=== PATIENT | female | born 1995 | race Caucasian/White ===

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

== ENCOUNTER → 2017-08-14 | Outpatient (CLI) | payer SELFPAY ==
--- NOTE | 2017-08-14 17:09 | RADIOLOGY REPORT (SQ) ---
EXAM DESCRIPTION: U/S [id number] TRNABD 1GES W/ODOP COMPLETED DATE/TIME: 08/14/2017 3:40 pm REASON FOR STUDY: ENCNTR FOR SUPRVSN OF NORMAL FIRST PREG, FIRST TRIMESTER Z34.01 ENCNTR FOR SUPRVS N OF NORMAL FIRST PREG, FIRST TRIMES COMPARISON: None. TECHNIQUE: Transabdominal static and realtime grayscale images acquired of the pelvis. Additional se lected spectral and color Doppler images recorded. All images stored on PACs. [facility]: Not available. CLINICAL DATES: 9 weeks 6 days LIMITATIONS: None. FINDINGS: FETUS: Living intrauterine . ULTRASOUND EGA: 9 weeks 2 days ULTRASOUND JULITA: 03/17/2018 CRL: 2.5 cm. FHR: 173 beats per minute. SUBCHORIONIC BLEED: No SIZE OF BLEED: Not applicable. UTERUS: No masses or anomalies. 10.3 x 6.7 x 5.4 cm. CERVICAL LENGTH: 2.9 cm. Closed. RIGHT ADNEXA: Ovary not seen. No adnexal free fluid. No adnexal masses. LEFT ADNEXA: Ovary not seen. No adnexal free fluid. No adnexal masses. FREE FLUID: None. OTHER: No other significant finding. IMPRESSION: LIVING INTRAUTERINE . EGA 9 weeks 2 days. Trimester of : First - 0 to 13 weeks. TECHNICAL DOCUMENTATION: JOB ID: [id number] [employer]- All Rights Reserved rev Reading location - IP/workstation name: [email or web address]
== END ==
LOC: RAD 14:41
PROVIDERS: ATTEND Nurse Practitioner Women's Health
DX: Z34.01 Encounter for supervision of normal first pregnancy, first trimester (principal)
CPT/HCPCS: 76801

== ENCOUNTER 2017-08-16 11:23 | Emergency (ER) | payer SELFPAY ==
--- NOTE | 2017-08-16 12:23 | ER Document Report ---
ED Medical Screen (RME) - General Chief Complaint: Abdominal Pain Stated Complaint: VOMITING,DIZZY,ABDOMINAL PAIN Time Seen by Provider: 08/16/17 12:14 Notes: 22-year-old female, had ultrasound 2 days ago showing a 9 week 2 day viable IUP. This morning she woke up and vomited bright red blood with some clots. Later she blew her nose and blood came out of that. She also reports feeling dizzy, and was complaining of some lower abdominal pain. She is also noted to have a frequent dry cough. I suspect she had a nosebleed during the night and swallowed blood and that is what she vomited this morning. I have greeted and performed a rapid initial assessment of this patient. A comprehensive ED assessment and evaluation of the patient, analysis of test results and completion of the medical decision making process will be conducted by additional ED providers. TRAVEL OUTSIDE OF THE [place] IN LAST 30 DAYS: No - Related Data Allergies/Adverse Reactions: No Known Allergies Allergy (Verified 11/17/16 20:40) Past Medical History - Social History Chew tobacco use (# tins/day): No Frequency of alcohol use: None Drug Abuse: None Renal/ Medical History: Denies: Hx Peritoneal Dialysis Physical Exam - Vital signs Vitals: Temp Pulse Resp BP Pulse Ox 98.3 F 105 H 16 131/71 H 99 08/16/17 11:37 08/16/17 11:37 08/16/17 11:37 08/16/17 11:37 08/16/17 11:37 Course - Vital Signs Vital signs: Temp Pulse Resp BP Pulse Ox 98.3 F 105 H 16 131/71 H 99 08/16/17 11:37 08/16/17 11:37 08/16/17 11:37 08/16/17 11:37 08/16/17 11:37 Doctor's Discharge - Discharge Referrals: WANDA GEORGE NP [Primary Care Provider] - Follow up as needed
[2017-08-16 12:58] LABS: ABSOLUTE EOSINOPHILS # (AUTO) 0.1 10^3/uL (0.0-0.6); ABSOLUTE LYMPHOCYTES (AUTO) 1.6 10^3/uL (0.5-4.7); ABSOLUTE MONOCYTES (AUTO) 0.5 10^3/uL (0.1-1.4); ABSOLUTE NEUT (AUTO) 2.9 10^3/uL (1.7-8.2); BASOPHILS % (AUTO) 0.4 % (0-2); EOSINOPHILS % (AUTO) 1.8 % (0-6); HEMATOCRIT 40.2 % (36.0-47.0); HEMOGLOBIN 13.9 g/dL (12.0-15.5); INTERNATIONAL RATION (INR) 0.98; LYMPHOCYTES % (AUTO) 32.3 % (13-45); MEAN CORPUSCULAR HEMOGLOBIN 29.2 pg (27.0-33.4); MEAN CORPUSCULAR HGB CONC 34.6 g/dL (32.0-36.0); MEAN CORPUSCULAR VOLUME 85 fl (80-97); MONOCYTES % (AUTO) 9.1 % (3-13); PLATELET COUNT 409 10^3/uL (150-450); PROTHROMBIN TIME 13.5 SEC (11.4-15.4); RED BLOOD COUNT 4.76 10^6/uL (3.72-5.28); RED CELL DISTRIBUTION WIDTH 14.5 % (11.5-14.0); SEGMENTED NEUTROPHILS % (AUTO) 56.4 % (42-78); TOTAL CELLS COUNTED % (AUTO) 100 %; WHITE BLOOD COUNT 5.1 10^3/uL (4.0-10.5)
[2017-08-16 13:27] LABS: APPEARANCE,URINE CLOUDY; BILIRUBIN,URINE NEGATIVE (NEGATIVE); GLUCOSE, URINE NEGATIVE (NEGATIVE); KETONES,URINE NEGATIVE (NEGATIVE); LEUKOCYTE ESTERASE,URINE MODERATE (NEGATIVE); NITRITE,URINE NEGATIVE (NEGATIVE); PROTEIN,URINE 100 mg/dL (NEGATIVE); URINE SPECIFIC GRAVITY 1.024
[2017-08-16 13:28] LABS: COLOR,URINE YELLOW
--- NOTE | 2017-08-16 14:31 | ER Document Report ---
ED General - General Chief Complaint: Abdominal Pain Stated Complaint: VOMITING,DIZZY,ABDOMINAL PAIN Time Seen by Provider: 08/16/17 12:14 Mode of Arrival: Ambulatory Information source: Patient Notes: 22-year-old female 1 para 09 weeks 4 days based on ultrasound was performed 2 days ago resents with complaints of vomiting bright red blood. She denies any fevers or chills patient notes she had a nosebleed. She denies any dark stools. Admits to dizziness intermittent abdominal cramping, denies any vaginal bleeding TRAVEL OUTSIDE OF THE [place] IN LAST 30 DAYS: No - HPI Onset: Just prior to arrival Onset/Duration: Sudden Quality of pain: Cramping Severity: Mild Pain Level: 1 Associated symptoms: Other Exacerbated by: Denies Relieved by: Denies Similar symptoms previously: No Recently seen / treated by doctor: No - Related Data Allergies/Adverse Reactions: No Known Allergies Allergy (Verified 11/17/16 20:40) Past Medical History - Social History Smoking Status: Never Smoker Cigarette use (# per day): No Chew tobacco use (# tins/day): No Smoking Education Provided: No Frequency of alcohol use: None Drug Abuse: None Family History: Reviewed & Not Pertinent Patient has suicidal ideation: No Patient has homicidal ideation: No Renal/ Medical History: Denies: Hx Peritoneal Dialysis Review of Systems - Review of Systems Notes: REVIEW OF SYSTEMS: CONSTITUTIONAL : Denies fever, chills, or sweats. Denies recent illness. EENT: Denies eye, ear, throat, or mouth pain or symptoms. Denies nasal or sinus congestion or discharge. Denies throat, tongue, or mouth swelling or difficulty swallowing. CARDIOVASCULAR: Denies chest pain. Denies palpitations or racing or irregular heart beat. Denies ankle edema. RESPIRATORY: Denies cough, cold, or chest congestion. Denies shortness of breath, difficulty breathing, or wheezing. GASTROINTESTINAL: Admits to abdominal cramping vomiting blood GENITOURINARY: Denies difficulty urinating, painful urination, burning, frequency, blood in urine, or discharge. FEMALE GENITOURINARY: Denies vaginal bleeding, heavy or abnormal periods, irregular periods. Denies vaginal discharge or odor. MUSCULOSKELETAL: Denies back or neck pain or stiffness. Denies joint pain or swelling. SKIN: Denies rash, lesions or sores. HEMATOLOGIC : Denies easy bruising or bleeding. LYMPHATIC: Denies swollen, enlarged glands. NEUROLOGICAL: Denies confusion or altered mental status. Denies passing out or loss of consciousness. Denies dizziness or lightheadedness. Denies headache. Denies weakness or paralysis or loss of use of either side. Denies problems with gait or speech. Denies sensory loss, numbness, or tingling. Denies seizures. PSYCHIATRIC: Denies anxiety or stress. Denies depression, suicidal ideation, or homicidal ideation. ALL OTHER SYSTEMS REVIEWED AND NEGATIVE. PHYSICAL EXAMINATION: GENERAL: Well-appearing, well-nourished and in no acute distress. HEAD: Atraumatic, normocephalic. EYES: Pupils equal round and reactive to light, extraocular movements intact, conjunctiva are normal. ENT: Nares patent, oropharynx clear without exudates. Moist mucous membranes. NECK: Normal range of motion, supple without lymphadenopathy LUNGS: Breath sounds clear to auscultation bilaterally and equal. No wheezes rales or rhonchi. HEART: Regular rate and rhythm without murmurs ABDOMEN: Soft, nontender, nondistended abdomen. No guarding, no rebound. No masses appreciated. Female : deferred Musculoskeletal: Normal range of motion, no pitting or edema. No cyanosis. NEUROLOGICAL: Cranial nerves grossly intact. Normal speech, normal gait. Normal sensory, motor exams PSYCH: Normal mood, normal affect. SKIN: Warm, Dry, normal turgor, no rashes or lesions noted. Dictation was performed using [employer] voice recognition software Physical Exam - Vital signs Vitals: Temp Pulse Resp BP Pulse Ox 98.3 F 105 H 16 131/71 H 99 08/16/17 11:37 08/16/17 11:37 08/16/17 11:37 08/16/17 11:37 08/16/17 11:37 Course - Re-evaluation Re-evalutation: 08/16/17 14:30 Rectal examination performed with nurse Holley in the room, no black tarry stools are noted, I believe the bleeding is coming from the nose itself, she does have some blood in her urine as well as bacteria, I will treat her for UTI 08/16/17 15:20 After performing a Medical Screening Examination, I estimate there is LOW risk for ACUTE APPENDICITIS, BOWEL OBSTRUCTION, ACUTE CHOLECYSTITIS, PERFORATED DIVERTICULITIS, INCARCERATED HERNIA, PANCREATITIS, PELVIC INFLAMMATORY DISEASE, PERFORATED ULCER, ECTOPIC , or TUBO-OVARIAN ABSCESS, thus I consider the discharge disposition reasonable. Also, there is no evidence or peritonitis , sepsis, or toxicity. I have reevaluated this patient multiple times and no significant life threatening changes are noted. The patient and I have discussed the diagnosis and risks, and we agree with discharging home with close follow-up with the understanding that symptoms and presentations can change. We also discussed returning to the Emergency Department immediately if new or worsening symptoms occur. We have discussed the symptoms which are most concerning (e.g., bloody stool, fever, changing or worsening pain, vomiting) that necessitate immediate return. - Vital Signs Vital signs: Temp Pulse Resp BP Pulse Ox 98.1 F 99 16 120/63 99 08/16/17 15:49 08/16/17 15:49 08/16/17 11:37 08/16/17 15:49 08/16/17 15:49 - Laboratory Result Diagrams: 08/16/17 12:25 Laboratory results interpreted by me: 08/16/17 08/16/17 12:25 12:25 RDW 14.5 H Urine Protein 100 H Urine Blood MODERATE H Urine Urobilinogen 2.0 H Ur Leukocyte Esterase MODERATE H Discharge - Discharge Clinical Impression: UTI in Qualifiers: Trimester: first trimester Qualified Code(s): O23.41 - Unspecified infection of urinary tract in , first trimester Condition: Stable Disposition: HOME, SELF-CARE Instructions: Urinary Tract Infection ([facility]) Prescriptions: Cephalexin Monohydrate [Keflex 500 mg Capsule] 500 mg PO BID 7 Days capsule Referrals: WANDA GEORGE NP [NO LOCAL MD] - Follow up in 3-5 days
[2017-08-16 15:50] VITALS: BP 120/63
== END 2017-08-16 15:59 | disposition home or self-care (01) ==
LOC: ER 11:23
DX: O23.41 Unspecified infection of urinary tract in pregnancy, first trimester (principal); O21.9 Vomiting of pregnancy, unspecified; O26.891 Other specified pregnancy related conditions, first trimester; R42 Dizziness and giddiness; R10.9 Unspecified abdominal pain; Z3A.10 10 weeks gestation of pregnancy
CPT/HCPCS: 36415; 81001; 82272; 85025; 85610; 99284

== ENCOUNTER 2017-09-04 11:19 | Emergency (ER) | payer MEDICAID ==
--- NOTE | 2017-09-04 11:48 | ER Document Report ---
ED Medical Screen (RME) - General Chief Complaint: Vaginal Bleeding Stated Complaint: VAGINAL BLEEDING,PAINFUL URINATION Time Seen by Provider: 09/04/17 11:45 Notes: Patient is , first , who noted vaginal spotting and bleeding this morning. She is needing to wear a pad. Is having some lower midline cramping. Has not had bleeding previously in her . 1. LMP 4/ 25. Has some urinary burning. Denies any fevers. No other medical problems. TRAVEL OUTSIDE OF THE [place] IN LAST 30 DAYS: No - Related Data Allergies/Adverse Reactions: seafood Allergy (Uncoded 09/04/17 11:20) Past Medical History - Social History Chew tobacco use (# tins/day): No Frequency of alcohol use: None Drug Abuse: None Renal/ Medical History: Denies: Hx Peritoneal Dialysis Physical Exam - Vital signs Vitals: Temp Pulse Resp BP Pulse Ox 98.1 F 99 20 134/68 H 99 09/04/17 11:26 09/04/17 11:26 09/04/17 11:26 09/04/17 11:26 09/04/17 11:26 Course - Vital Signs Vital signs: Temp Pulse Resp BP Pulse Ox 98.1 F 99 20 134/68 H 99 09/04/17 11:26 09/04/17 11:26 09/04/17 11:26 09/04/17 11:26 09/04/17 11:26
[2017-09-04 12:24] LABS: ABSOLUTE LYMPHOCYTES (AUTO) 1.9 10^3/uL (0.5-4.7); ABSOLUTE MONOCYTES (AUTO) 0.6 10^3/uL (0.1-1.4); ABSOLUTE NEUT (AUTO) 7.9 10^3/uL (1.7-8.2); BASOPHILS % (AUTO) 0.1 % (0-2); EOSINOPHILS % (AUTO) 0.3 % (0-6); HEMATOCRIT 40.5 % (36.0-47.0); HEMOGLOBIN 13.5 g/dL (12.0-15.5); LYMPHOCYTES % (AUTO) 18.4 % (13-45); MEAN CORPUSCULAR HEMOGLOBIN 28.4 pg (27.0-33.4); MEAN CORPUSCULAR HGB CONC 33.5 g/dL (32.0-36.0); MEAN CORPUSCULAR VOLUME 85 fl (80-97); MONOCYTES % (AUTO) 5.8 % (3-13); PLATELET COUNT 423 10^3/uL (150-450); RED BLOOD COUNT 4.77 10^6/uL (3.72-5.28); RED CELL DISTRIBUTION WIDTH 14.7 % (11.5-14.0); SEGMENTED NEUTROPHILS % (AUTO) 75.4 % (42-78); TOTAL CELLS COUNTED % (AUTO) 100 %; WHITE BLOOD COUNT 10.5 10^3/uL (4.0-10.5)
--- NOTE | 2017-09-04 13:10 | RADIOLOGY REPORT (SQ) ---
EXAM DESCRIPTION: U/S OB TRANSVAG W/DOPPLER COMPLETED DATE/TIME: 09/04/2017 12:47 pm REASON FOR STUDY: with vaginal bleeding and cramps COMPARISON: None. TECHNIQUE: Transvaginal static and realtime grayscale images acquired of the pelvis. Additional kaila cted spectral and color Doppler images recorded. All images stored on PACs. bHCG: Not available. CLINICAL DATES: LIMITATIONS: None. FINDINGS: FETUS: Living intrauterine . ULTRASOUND EGA: 12 weeks 5 days ULTRASOUND JULITA: 03/13/2018 CRL: 6.3 cm FHR: 163 beats per minute. SUBCHORIONIC BLEED: No. SIZE OF BLEED: Not applicable. UTERUS: No masses. No anomalies. CERVICAL LENGTH: 2.2 cm. Closed. RIGHT ADNEXA: Normal ovary with normal vascular flow. No adnexal free fluid. No adnexal masses. LEFT ADNEXA: Normal ovary with normal vascular flow. No adnexal free fluid. No adnexal masses. FREE FLUID: Small amount. OTHER: No other significant finding. IMPRESSION: LIVING INTRAUTERINE . EGA 12 weeks 5 days. Trimester of : First - 0 to 13 weeks. TECHNICAL DOCUMENTATION: JOB ID: [id number] [employer]- All Rights Reserved rev-06/29 Reading location - IP/workstation name: [email or web address]
--- NOTE | 2017-09-04 13:27 | ER Document Report ---
ED General - General Chief Complaint: Vaginal Bleeding Stated Complaint: VAGINAL BLEEDING,PAINFUL URINATION Time Seen by Provider: 09/04/17 11:45 Mode of Arrival: Ambulatory Information source: Patient TRAVEL OUTSIDE OF THE [place] IN LAST 30 DAYS: No - HPI Notes: 22-year-old female who is nearly 13 weeks with her first patient presents to the ED with complaints of vaginal spotting and cramping that started this morning. Denies any trauma. She is being managed by the health department for her [facility] care. Has not tried any [id number]-[id number] medications. Denies any recent travel, new foods or medications. Last menstrual period was June 06, 2017. Denies any previous occurrence of vaginal bleeding. Last bowel movement was yesterday. Denies any rashes. Vaccinations are up-to-date. Does not know blood type. Patient states she needed to use a sedentary. However she cannot believe the sedentary pad since the onset of bleeding of 600 this morning denies fevers, chills, chest pain,palpitations, shortness of breath, dyspnea, nausea, vomiting, diarrhea, abdominal pain, hematuria,blurred vision, double vision, loss of vision, speech changes, LH, dizziness, syncope, headaches, wheezing, ST, URI, neck pain, weakness, bowel or bladder dysfunction, saddle anesthesia, numbness or tingling in bilateral upper or lower extremities equally, muscle paralysis, weakness in bilateral upper or lower extremities equally or rash. Denies IV drug use. - Related Data Allergies/Adverse Reactions: seafood Allergy (Uncoded 09/04/17 11:20) Past Medical History - General Information source: Patient - Social History Smoking Status: Never Smoker Chew tobacco use (# tins/day): No Frequency of alcohol use: None Drug Abuse: None Family History: Reviewed & Not Pertinent Patient has suicidal ideation: No Patient has homicidal ideation: No Renal/ Medical History: Denies: Hx Peritoneal Dialysis Review of Systems - Review of Systems Constitutional: No symptoms reported EENT: No symptoms reported Cardiovascular: No symptoms reported Respiratory: No symptoms reported Gastrointestinal: No symptoms reported Genitourinary: No symptoms reported Female Genitourinary: See HPI Musculoskeletal: No symptoms reported Skin: No symptoms reported Hematologic/Lymphatic: No symptoms reported Neurological/Psychological: No symptoms reported Physical Exam - Vital signs Vitals: Temp Pulse Resp BP Pulse Ox 98.1 F 99 20 134/68 H 99 09/04/17 11:26 09/04/17 11:26 09/04/17 11:26 09/04/17 11:26 09/04/17 11:26 - Notes Notes: PHYSICAL EXAMINATION: GENERAL: Well-appearing, well-nourished and in no acute distress. HEAD: Atraumatic, normocephalic. EYES: Pupils equal round and reactive to light, extraocular movements intact, conjunctiva are normal. ENT: Nares patent, oropharynx clear without exudates. Moist mucous membranes. NECK: Normal range of motion, supple without lymphadenopathy LUNGS: Breath sounds clear to auscultation bilaterally and equal. No wheezes rales or rhonchi. HEART: Regular rate and rhythm without murmurs ABDOMEN: Soft, nontender, nondistended abdomen. No guarding, no rebound. No masses appreciated. Female : External genitalia without erythema, exudate or discharge. Vaginal vault is without discharge. Cervix is of normal color without lesion. There is no bleeding noted. Uterus is noted to be of normal size and nontender. No cervical motion tenderness is seen. No masses are palpated. cervical os closed Musculoskeletal: Normal range of motion, no pitting or edema. No cyanosis. NEUROLOGICAL: Cranial nerves grossly intact. Normal speech, normal gait. Normal sensory, motor exams PSYCH: Normal mood, normal affect. SKIN: Warm, Dry, normal turgor, no rashes or lesions noted. Course - Re-evaluation Re-evalutation: 09/04/17 14:24 22-year-old female in first , 8 febrile, vitals stable and in no distress. HCG 78,501, CBC negative for leukocytosis or anemia. CMP negative for any renal or hepatic dysfunction, electrolytes normal. Urinalysis shows pyelonephritis with leukocytes, hematuria and proteinuria. Patient states he did have some burning with urination but that this was due to being since is her first . Wet mount and GC negative. Transvaginal ultrasound shows an intrauterine . heart tones 163. No blood seen in the vaginal canal on examination. Normal examination. Patient is on any pain. Patient is O+, does not require RhoGam. Patient is being managed by the health department. Patient is taking vitamins, discussed with patient that she does need to [facility] with [facility] for post ER follow-up. Advised patient to take oral Macrobid as directed, patient given 1 g of Rocephin for acute pyelonephritis. 09/04/17 15:39 After performing a Medical Screening Examination, I estimate there is LOW risk for ACUTE APPENDICITIS, BOWEL OBSTRUCTION, ACUTE CHOLECYSTITIS, PERFORATED DIVERTICULITIS, INCARCERATED HERNIA, PANCREATITIS, PELVIC INFLAMMATORY DISEASE, PERFORATED ULCER, ECTOPIC , or TUBO-OVARIAN ABSCESS, thus I consider the discharge disposition reasonable. Also, there is no evidence or peritonitis , sepsis, or toxicity. I have reevaluated this patient multiple times and no significant life threatening changes are noted. The patient and I have discussed the diagnosis and risks, and we agree with discharging home with close follow-up with the understanding that symptoms and presentations can change. We also discussed returning to the Emergency Department immediately if new or worsening symptoms occur. We have discussed the symptoms which are most concerning (e.g., bloody stool, fever, changing or worsening pain, vomiting) that necessitate immediate return. - Vital Signs Vital signs: Temp Pulse Resp BP Pulse Ox 97.6 F 110 H 18 127/74 H 98 09/04/17 15:00 09/04/17 15:00 09/04/17 15:00 09/04/17 15:00 09/04/17 15:00 - Laboratory Result Diagrams: 09/04/17 11:52 09/04/17 11:52 Laboratory results interpreted by me: 09/04/17 09/04/17 09/04/17 11:27 11:52 11:52 RDW 14.7 H BUN Beta HCG, Quant 87291.00 H Urine Protein 100 H Urine Blood LARGE H Ur Leukocyte Esterase MODERATE H 09/04/17 11:52 RDW BUN 3 L Beta HCG, Quant Urine Protein Urine Blood Ur Leukocyte Esterase Discharge - Discharge Clinical Impression: Pyelonephritis Qualifiers: Weeks of gestation: 13 weeks Qualified Code(s): Z3A.13 - 13 weeks gestation of Condition: Stable Disposition: HOME, SELF-CARE Instructions: Antibiotic Therapy ([facility]), Nitrofurantoin ([facility]), ([facility]), Pyelonephritis ([facility]), Rocephin ([facility]) Additional Instructions: You were seen for abdominal pain during . Your ultrasound and labs are normal today. You do have a pyelonephritis which is a bladder infection that also in your kidney, he received 1 g of Rocephin today as well as he will be receiving oral antibiotics to take twice a day for 10 days. Eat yogurt daily to prevent loose stool. Continue taking vitamins. Please follow-up with your MANAGER ERP in the next 24-48 hours. Return to the emergency department immediately if you have worsening of your pain, have persistent vomiting, develop a fever of greater than 100.4F, begin to have vaginal bleeding, or any other symptoms that are worrisome to you. Return immediately for any new or worsening symptoms. Follow up with primary care provider, call tomorrow to make followup appointment. Prescriptions: Nitrofurantoin Monohyd/M-Cryst [Macrobid 100 mg Capsule] 1 tab PO BID #20 capsule Forms: Return to Work Referrals: CHASITY HAY MD [ACTIVE STAFF] - Follow up tomorrow TAMMY SKY MD [COMMUNITY BASED STAFF] - Follow up in 3-5 days
[2017-09-04 13:38] LABS: ANION GAP 14 (5-19); BLOOD UREA NITROGEN 3 mg/dL (7-20); CALCIUM 9.6 mg/dL (8.4-10.2); CARBON DIOXIDE 23 mmol/L (22-30); CHLORIDE 104 mmol/L (98-107); GLUCOSE 86 mg/dL (75-110); POTASSIUM 4.1 mmol/L (3.6-5.0)
[2017-09-04 13:42] LABS: RBCS (WET MOUNT) RARE RBCS SEEN; T.VAGINALIS (WET MOUNT) NO TRICHOMONAS SEEN; WBCS (WET MOUNT) 1+ WBCS SEEN; YEAST (WET MOUNT) NO YEAST SEEN
[2017-09-04 13:44] LABS: APPEARANCE,URINE TURBID; BILIRUBIN,URINE NEGATIVE (NEGATIVE); GLUCOSE, URINE NEGATIVE (NEGATIVE); KETONES,URINE NEGATIVE (NEGATIVE); LEUKOCYTE ESTERASE,URINE MODERATE (NEGATIVE); NITRITE,URINE NEGATIVE (NEGATIVE); PROTEIN,URINE 100 mg/dL (NEGATIVE); URINE SPECIFIC GRAVITY 1.021; UROBILINOGEN,URINE NEGATIVE mg/dL (<2.0)
[2017-09-04 13:46] LABS: COLOR,URINE RED
[2017-09-04] MEDS ORDERED: LIDOCAINE 1% INJ-PF (10 MG/ML) 30 ML SDV INJ ONE (14:18)
[2017-09-04] MEDS ORDERED: CEFTRIAXONE INJ 1000 MG VIAL IM ONE (14:18)
[2017-09-04 15:01] VITALS: BP 127/74
[2017-09-04 15:15] LABS: CHLAM PCR NOT DETECTED (NOT DETECT); GON PCR NOT DETECTED (NOT DETECT)
== END 2017-09-04 15:00 | disposition home or self-care (01) ==
LOC: ER 11:19
DX: O23.01 Infections of kidney in pregnancy, first trimester (principal); R30.0 Dysuria; Z3A.13 13 weeks gestation of pregnancy; Z91.013 Allergy to seafood
CPT/HCPCS: 99284; 96372; 86900; 86901; 36415; 87210; 84702; 85025; 80048; 81001; 87491; 87591; 76817; 93976; J3490; J0696

== ENCOUNTER 2018-03-04 19:12 | Outpatient (CLI) | payer MEDICAID ==
[2018-03-04 19:45] LABS: APPEARANCE,URINE SLIGHTLY-CLOUDY; BILIRUBIN,URINE NEGATIVE (NEGATIVE); COLOR,URINE YELLOW; GLUCOSE, URINE NEGATIVE (NEGATIVE); KETONES,URINE NEGATIVE (NEGATIVE); LEUKOCYTE ESTERASE,URINE TRACE (NEGATIVE); NITRITE,URINE NEGATIVE (NEGATIVE); PROTEIN,URINE NEGATIVE (NEGATIVE); URINE SPECIFIC GRAVITY 1.013; UROBILINOGEN,URINE NEGATIVE mg/dL (<2.0)
[2018-03-04 20:06] LABS: URINE AMPHETAMINES SCREEN NEGATIVE; URINE BARBITURATES SCREEN NEGATIVE; URINE BENZODIAZEPINES SCREEN NEGATIVE; URINE COCAINE SCREEN NEGATIVE; URINE MARIJUANA (THC) SCREEN NEGATIVE; URINE METHADONE SCREEN NEGATIVE; URINE PHENCYCLIDINE SCREEN NEGATIVE
--- NOTE | 2018-03-04 20:15 | Non Stress Test Report ---
Non Stress Test Datetime Report Generated by CPN: 03/04/2018 20:15 DEMOGRAPHIC Test Number: 1 EGA NST: 38.1 INDICATION Indication for Study (NST) Other: ROM? MONITORING Monitor Explained: Monitor Explained; Patient Verbalized Understanding Time on Monitor: 03/04/2018 19:29 Time off Monitor: 03/04/2018 19:56 NST Duration: 27 NST INTERVENTIONS Physician Notified NST: Younger MD BABY A: [id number] BABY A Movement : Present Contraction Frequency : occassional FHR Baseline : 145 Accelerations : 15X15 Decelerations : None Variability : Moderate 6-25bpm NST Review: Meets Criteria for Reactive NST NST Review and Verified By : SCely Lombardotibhenrry, RNC NST Results: Reactive NST REPORT Report Trigger: Send Report
== END 2018-03-04 20:09 | disposition home or self-care (01) ==
LOC: LC 19:12
PROVIDERS: ATTEND Obstetrics & Gynecology
PROC: 4A1HXCZ Monitoring of Products of Conception, Cardiac Rate, External Approach (ICD-10-PCS; principal; 2018-03-04)
DX: O47.1 False labor at or after 37 completed weeks of gestation (principal); Z3A.38 38 weeks gestation of pregnancy
CPT/HCPCS: 80307; 81005; 84112

== ENCOUNTER 2018-03-08 09:06 | Outpatient (CLI) | payer MEDICAID ==
[2018-03-08 10:08] LABS: URINE AMPHETAMINES SCREEN NEGATIVE; URINE BARBITURATES SCREEN NEGATIVE; URINE BENZODIAZEPINES SCREEN NEGATIVE; URINE COCAINE SCREEN NEGATIVE; URINE MARIJUANA (THC) SCREEN NEGATIVE; URINE METHADONE SCREEN NEGATIVE; URINE PHENCYCLIDINE SCREEN NEGATIVE; URINE PROTEIN 8.5 mg/dL (<12)
[2018-03-08 10:24] LABS: HEMATOCRIT 31.1 % (36.0-47.0); HEMOGLOBIN 10.4 g/dL (12.0-15.5); MEAN CORPUSCULAR HEMOGLOBIN 26.2 pg (27.0-33.4); MEAN CORPUSCULAR HGB CONC 33.3 g/dL (32.0-36.0); MEAN CORPUSCULAR VOLUME 79 fl (80-97); PLATELET COUNT 469 10^3/uL (150-450); RED BLOOD COUNT 3.95 10^6/uL (3.72-5.28); WHITE BLOOD COUNT 7.2 10^3/uL (4.0-10.5)
[2018-03-08 10:42] LABS: ALANINE AMINOTRANSFERASE 12 U/L (9-52); ALBUMIN 3.3 g/dL (3.5-5.0); ALKALINE PHOSPHATASE 138 U/L (38-126); ANION GAP 7 (5-19); ASPARTATE AMINO TRANSFERASE 15 U/L (14-36); BILIRUBIN,DIRECT 0.2 mg/dL (0.0-0.4); BILIRUBIN,TOTAL 0.3 mg/dL (0.2-1.3); BLOOD UREA NITROGEN 5 mg/dL (7-20); CALCIUM 8.9 mg/dL (8.4-10.2); CARBON DIOXIDE 23 mmol/L (22-30); CHLORIDE 107 mmol/L (98-107); GLUCOSE 84 mg/dL (75-110); POTASSIUM 4.1 mmol/L (3.6-5.0); SODIUM 136.8 mmol/L (137-145); URIC ACID 4.5 mg/dL (2.5-6.2)
[2018-03-08] MEDS ORDERED: ACETAMINOPHEN 325 MG TABLET PO ONE (10:45)
[2018-03-08] MEDS ORDERED: ACETAMINOPHEN 325 MG TABLET ONE (10:50)
== END 2018-03-08 11:26 | disposition home or self-care (01) ==
LOC: LC 09:06
PROVIDERS: ATTEND Obstetrics & Gynecology
PROC: 4A1HXCZ Monitoring of Products of Conception, Cardiac Rate, External Approach (ICD-10-PCS; principal; 2018-03-08)
DX: Z36.89 Encounter for other specified antenatal screening (principal)
CPT/HCPCS: 59025; 36415; 83615; 84156; 84550; 82570; 85027; 80053; 80307; J3490

== ENCOUNTER 2018-03-15 15:39 | Outpatient (CLI) | payer MEDICAID ==
--- NOTE | 2018-03-15 15:46 | Non Stress Test Report ---
Non Stress Test Datetime Report Generated by CPN: 03/15/2018 15:46 DEMOGRAPHIC EGA NST: 38.5 INDICATION Indication for Study: Ordered by Provider MONITORING Monitor Explained: Monitor Explained; Test Explained; Patient Verbalized Understanding Time on Monitor: 03/08/2018 09:23 Time off Monitor: 03/08/2018 11:23 NST Duration: 120 NST INTERVENTIONS NST Interventions: PO Hydration; Meal Given; Reposition Patient Physician Notified NST: Lawrence BABY A: [id number] BABY A Movement : Present Contraction Frequency : 0 FHR Baseline : 135 Accelerations : 15X15 Decelerations : None Variability : Moderate 6-25bpm NST Review: Meets Criteria for Reactive NST NST Review and Verified By : aRdha Laurent RN NST Results: Reactive NST REPORT Report Trigger: Send Report
--- NOTE | 2018-03-18 11:19 | Non Stress Test Report ---
Non Stress Test Datetime Report Generated by CPN: 03/18/2018 11:19 DEMOGRAPHIC EGA NST: 39.5 INDICATION Indication for Study: Ordered by Provider Indication for Study (NST) Other: sent from the office for repeat VITAL SIGNS RESP - NST: 16 MONITORING Monitor Explained: Monitor Explained; Test Explained; Patient Verbalized Understanding Time on Monitor: 03/15/2018 15:45 Time off Monitor: 03/15/2018 16:42 NST Duration: 57 NST INTERVENTIONS NST Interventions: PO Hydration; Reposition Patient Physician Notified NST: J Simms CNM BABY A: [id number] BABY A Movement : Present Contraction Frequency : 0 FHR Baseline : 145 Accelerations : 15X15 Decelerations : None Variability : Moderate 6-25bpm NST Review: Meets Criteria for Reactive NST NST Review and Verified By : TAD Hester NST Results: Reactive NST REPORT Report Trigger: Send Report
== END 2018-03-15 16:43 | disposition home or self-care (01) ==
LOC: LC 15:39
PROVIDERS: ATTEND Obstetrics & Gynecology
PROC: 4A1HXCZ Monitoring of Products of Conception, Cardiac Rate, External Approach (ICD-10-PCS; principal; 2018-03-15)
DX: Z34.93 Encounter for supervision of normal pregnancy, unspecified, third trimester (principal)
CPT/HCPCS: 59025

== ENCOUNTER 2018-03-18 12:17 | Inpatient (IN) | payer MEDICAID ==
[2018-03-18] MEDS ORDERED: RINGERS SOLUTION,LACTATED 1,000 ML IV PRN (12:21)
[2018-03-18] MEDS ORDERED: DINOPROSTONE 10 MG VAGINAL INSERT.SR PV PRN (12:21)
[2018-03-18] MEDS ORDERED: OXYTOCIN/NORMAL SALINE 1,000 ML IV PRN (12:21)
[2018-03-18] MEDS ORDERED: RINGERS SOLUTION,LACTATED 300 ML IV ONE (12:21)
[2018-03-18] MEDS ORDERED: DINOPROSTONE 10 MG VAGINAL INSERT.SR ONE (13:17)
[2018-03-18 13:19] LABS: ABSOLUTE LYMPHOCYTES (AUTO) 1.6 10^3/uL (0.5-4.7); ABSOLUTE MONOCYTES (AUTO) 0.5 10^3/uL (0.1-1.4); ABSOLUTE NEUT (AUTO) 6.2 10^3/uL (1.7-8.2); BASOPHILS % (AUTO) 0.3 % (0-2); EOSINOPHILS % (AUTO) 0.2 % (0-6); HEMATOCRIT 35.9 % (36.0-47.0); HEMOGLOBIN 11.7 g/dL (12.0-15.5); LYMPHOCYTES % (AUTO) 19.4 % (13-45); MEAN CORPUSCULAR HEMOGLOBIN 25.5 pg (27.0-33.4); MEAN CORPUSCULAR HGB CONC 32.4 g/dL (32.0-36.0); MEAN CORPUSCULAR VOLUME 78 fl (80-97); MONOCYTES % (AUTO) 6.3 % (3-13); PLATELET COUNT 481 10^3/uL (150-450); RED BLOOD COUNT 4.58 10^6/uL (3.72-5.28); SEGMENTED NEUTROPHILS % (AUTO) 73.8 % (42-78); TOTAL CELLS COUNTED % (AUTO) 100 %; WHITE BLOOD COUNT 8.3 10^3/uL (4.0-10.5)
--- NOTE | 2018-03-18 13:21 | Admission Physical ---
Datetime Report Generated by CPN: 03/18/2018 13:21 CURRENT ADMISSION Chief Complaint: Sent from OB Office for Evaluation and Treatment - Please Specify Indication for Induction: Oligohydramnios Admit Impression : Term, Intrauterine ; No Active Labor; Intact Membranes Admit Impression- Other: GBS negative Admit Plan: Admit to Unit Admit Plan- Other: Plan Cervidil for cervical ripening ALLERGIES Medication Allergies: Yes Medication Allergies: shellfish, get migraines Latex: No Latex Allergies OBSTETRICAL HISTORY EDC: 03/17/2018 00:00 : 1 Para: 0 Term: 0 : 0 SAB: 0 IAB: 0 Ectopic: 0 Livin Cesareans: 0 VBACs: 0 Multiple Births: 0 SEE RECORDS Alcohol: No Marijuana : No Cocaine: No Other Illicit Drugs: No Cigarettes: Never Smoker. [id number] PHYSICAL EXAM General: Normal HEENT: Normal Neurologic: Normal Thyroid: Normal Heart: Normal Lungs: Normal Breast: Normal Back: Normal Abdomen: Normal Genitourinary Exam: Normal Extremities: Normal DTRs: Normal Pelvic Type: Adequate Vital Signs: Reviewed; Within Normal Limits VAGINAL EXAM Dilatation: 1 Effacement: 50 Station: 0 Contraction Comments: 0 MEMBRANES Membranes: Intact FETUS A EGA: 40.1 Monitoring: External US FHR- Baseline: 140 Variability: Moderate 6-25bpm Accelerations: 15X15 Decelerations: None FHR Category: Category I Admit Comment: Pt seen in the office today, u/s done and noted KELVIN 3.0 cm. Sent over from the office for IOL at 40 wks 1 day. GBS negative. Plan of care discussed w/ the patient. Plan Cervidil for cervical ripening. GBS negative. Attending MD is Dr Bravo PLANS FOR LABOR AND DELIVERY Labor and Delivery: None Pain Management: Medications; Epidural Other Pain Management Plans: wants to see of it goes Feeding Preference: Breast Circumcision: N/A INFORMED CONSENT Assignment: Nuria Bravo MD Signature: with User ID: Diane : with User ID: Diane
[2018-03-18 13:39] LABS: APPEARANCE,URINE CLOUDY; BILIRUBIN,URINE SMALL (NEGATIVE); COLOR,URINE AMBER; GLUCOSE, URINE NEGATIVE (NEGATIVE); KETONES,URINE NEGATIVE (NEGATIVE); LEUKOCYTE ESTERASE,URINE TRACE (NEGATIVE); NITRITE,URINE NEGATIVE (NEGATIVE); PROTEIN,URINE 30 mg/dL (NEGATIVE); URINE SPECIFIC GRAVITY 1.027
[2018-03-18 14:08] LABS: URINE AMPHETAMINES SCREEN NEGATIVE; URINE BARBITURATES SCREEN NEGATIVE; URINE BENZODIAZEPINES SCREEN NEGATIVE; URINE COCAINE SCREEN NEGATIVE; URINE MARIJUANA (THC) SCREEN NEGATIVE; URINE METHADONE SCREEN NEGATIVE; URINE PHENCYCLIDINE SCREEN NEGATIVE
[2018-03-19] MEDS ORDERED: ACETAMINOPHEN 325 MG TABLET ONE (00:33)
[2018-03-19] MEDS ORDERED: OXYTOCIN 10 UNIT/ML VIAL ONE (04:21)
[2018-03-19] MEDS ORDERED: OXYTOCIN/NORMAL SALINE 20 UNIT/1,000 ML RTUINJ ONE (04:22)
[2018-03-19] MEDS ORDERED: FENTANYL/BUPIVACAINE/NS/PF 300 MCG/150 ML RTUINJ EPI ONE (04:22)
[2018-03-19] MEDS ORDERED: EPHEDRINE SULFATE INJ 50 MG/1 ML AMPULE ONE (04:22)
[2018-03-19] MEDS ORDERED: LIDOCAINE 1% INJ-PF (10 MG/ML) 30 ML SDV ONE (04:22)
[2018-03-19] MEDS ORDERED: MISOPROSTOL 0.2 MG TABLET ONE (04:22)
[2018-03-19] MEDS ORDERED: BUPIVACAINE HCL 0.25 % INJ/PF (2.5 MG/1 ML) 30 ML VIAL ONE (04:22)
[2018-03-19] MEDS ORDERED: NA PHOS,M-B/NA PHOS,DI-BA (ADULT) 133 ML ENEMA PR PRN (08:25)
[2018-03-19] MEDS ORDERED: ZOLPIDEM TARTRATE 5 MG TABLET PO PRN (08:25)
[2018-03-19] MEDS ORDERED: GLYCERIN/WITCH HAZEL LEAF 1 EACH MED..PAD TP PRN (08:25)
[2018-03-19] MEDS ORDERED: PSEUDOEPHEDRINE HCL 30 MG TABLET PO PRN (08:25)
[2018-03-19] MEDS ORDERED: MAGNESIUM HYDROXIDE SUSP 30 ML UDCUP PO PRN (08:25)
[2018-03-19] MEDS ORDERED: DIPH/PERTUSS(ACELL)/TETANUS VAC/PF 0.5 ML SYR (>=10YO) IM PRN (08:25)
[2018-03-19] MEDS ORDERED: ACETAMINOPHEN WITH CODEINE #3 TABLET PO PRN ×2 (08:25)
[2018-03-19] MEDS ORDERED: PROMETHAZINE HCL 25 MG TABLET PO PRN (08:25)
[2018-03-19] MEDS ORDERED: MEASLES,MUMPS&RUBELLA VACC/PF 0.5 ML VIAL SUBCUT PRN (08:25)
[2018-03-19] MEDS ORDERED: OXYTOCIN/NORMAL SALINE 20 UNIT/1,000 ML RTUINJ IV PRN (08:25)
[2018-03-19] MEDS ORDERED: ACETAMINOPHEN 650 MG SUPP.RECT PR PRN (08:25)
[2018-03-19] MEDS ORDERED: PROMETHAZINE HCL 25 MG SUPP.RECT PR PRN (08:25)
[2018-03-19] MEDS ORDERED: DIBUCAINE 1% OINTMENT 28 GM TP PRN (08:25)
[2018-03-19] MEDS ORDERED: DIPHENHYDRAMINE HCL 25 MG CAPSULE PO PRN (08:25)
[2018-03-19] MEDS ORDERED: BENZOCAINE/MENTHOL AEROSOL SPRAY 56 ML TOP PRN (08:25)
[2018-03-19] MEDS ORDERED: PROMETHAZINE HCL INJ 25 MG/1 ML VIAL IV PRN (08:25)
--- NOTE | 2018-03-19 08:45 | Warning Signs in Babies ---
VOD Warning Signs Datetime Report Generated by [facility]: 03/19/2018 08:44 VOD#608 -Warning Signs in Babies: Viewed with Parent(s)/Family (03/04/2018 18:53:CINDA Justin)
[2018-03-19] MEDS ORDERED: FERROUS SULFATE 325 MG TABLET PO SCH (10:00)
[2018-03-19] MEDS: PRENATAL VITAMIN W DHA CAPSULE PO SCH (11:43)
[2018-03-19] MEDS: SENNOSIDES/DOCUSATE 8.6-50 MG 1 EACH TABLET PO SCH (11:43)
[2018-03-19] MEDS: DOCUSATE SODIUM 100 MG CAPSULE PO SCH ×2 (11:43→18:17)
[2018-03-19] MEDS: FAMOTIDINE 20 MG TABLET PO SCH ×2 (11:43→21:56)
[2018-03-19] MEDS: FERROUS SULFATE 325 MG TABLET PO SCH (11:57)
[2018-03-19] MEDS: IBUPROFEN 800 MG TABLET PO SCH ×2 (14:00→21:56)
[2018-03-20] MEDS: IBUPROFEN 800 MG TABLET PO SCH ×3 (06:08→22:55)
[2018-03-20 07:33] LABS: HEMATOCRIT 26.2 % (36.0-47.0); MEAN CORPUSCULAR HEMOGLOBIN 25.9 pg (27.0-33.4); MEAN CORPUSCULAR HGB CONC 33.5 g/dL (32.0-36.0); MEAN CORPUSCULAR VOLUME 77 fl (80-97); PLATELET COUNT 363 10^3/uL (150-450); RED BLOOD COUNT 3.38 10^6/uL (3.72-5.28); RED CELL DISTRIBUTION WIDTH 15.5 % (11.5-14.0); WHITE BLOOD COUNT 9.4 10^3/uL (4.0-10.5)
[2018-03-20 07:51] LABS: HEMOGLOBIN 8.8 g/dL (12.0-15.5)
--- NOTE | 2018-03-20 08:21 | Delivery Summary ---
Del Sum A-C Datetime Report Generated by CPN: 03/20/2018 08:20 DELIVERY PERSONNEL DELIVERY PERSONNEL: [id number] Delivery Doctor:: Nuria Bravo MD Labor and Delivery Nurse:: CINDA Justin Labor and Delivery Nurse:: Mikki Ordonez RN Nursery Nurse:: Doreen Braga RN Student Observers:: Cindy Agrawal RN Glass Driller/DELIVERY LEAD: ST Nona Glass Driller/DELIVERY LEAD: Lynne Murillo, RFID ANALYST MATERNAL INFORMATION Delivery Anesthesia: Epidural Medications After Delivery: Pitocin Bolus-Please Comment Meds After Delivery Comment: Pitocin 20 units in 1000 ml nss open for bolus Maternal Complications: None Provider Comments: VAD per Dr. Bravo, kiwi applied x2 with 1 pop off terminal mec noted LABOR SUMMARY EDC: 03/17/2018 00:00 No. Babies in Womb: 1 Attempted: No Labor Anesthesia: Epidural LABOR INFORMATION Reason for Induction: Oligohydramnios Onset of Labor: 03/19/2018 05:48 Complete Dilatation: 03/19/2018 07:41 Cervical Ripening Agents: Cervidil Oxytocin: Induction Group B Beta Strep: negative Steroids Given: None Reason Steroids Not Administered: Not Applicable STAGES OF LABOR Stage 1 hr: 1 Stage 1 min: 53 Stage 2 hr: 0 Stage 2 min: 18 Stage 3 hr: 0 Stage 3 min: 4 Total Time in Labor hr: 2 Total Time in Labor min: 15 VAGINAL DELIVERY Episiotomy: None Laceration #1: None Laceration Extension #1: N/A Laceration Repair: Not Applicable Sponge Count Correct: N/A Sharps Count Correct: N/A CSECTION DELIVERY Primary Indication: N/A BABY A INFORMATION Infant Delivery Date/Time: 03/19/2018 07:59 Method of Delivery: Vaginal Born in Route : No : N/A Forceps: N/A Vacuum Extraction: N/A Shoulder Dystocia : No ASSISTED DELIVERY BABY A Indication for Assisted Delivery: bradycardia Catheter Prior to Procedure: Yes Station Vacuum/Forcep Apply: +3 Position Vacuum/Forcep Apply: Right Occipital Anterior Vacuum Number of Pulls: 2 Vacuum Number of PopOffs: 1 Vacuum Maximum Pressure Obtained: 300 Reduce Pressure btwn Ctx: Yes Vacuum Display Mechanic: Kiwi Total Time Vacuum Applied: 45 seconds PRESENTATION/POSITION BABY A Presentation: Cephalic Cephalic Presentation: Vertex Vertex Position: Right Occipital Anterior Breech Presentation: N/A PLACENTA INFORMATION BABY A Placenta Delivery Time : 03/19/2018 08:03 Placenta Method of Delivery: Expressed Placenta Status: Delivered SCORES BABY A Heart Rate 1 min: >100 bpm Resp Effort 1 min: Slow, Irregular Reflex Irritability 1 min: Cough or Sneeze or Pulls Away Muscle Tone 1 min: Active Motion Color 1 min: Body [place], Extremities Blue Resuscitation Effort 1 min: Tactile Stimulation SCORE 1 MIN: 8 Heart Rate 5 min: >100 bpm Resp Effort 5 min: Good Cry Reflex Irritability 5 min: Cough or Sneeze or Pulls Away Muscle Tone 5 min: Active Motion Color 5 min: Body [place], Extremities Blue Resuscitation Effort 5 min: Oxygen SCORE 5 MIN: 9 Resuscitation Effort 10 min: N/A INFANT INFORMATION BABY A Gestational Age at Delivery: 40.2 Gestational Status: Full Term- 39- 40.6 Weeks Infant Outcome : Liveborn Infant Condition : Stable Sex: Female WEIGHT/LENGTH BABY A Infant Birthweight (gm): 2912 Weight (lb): 6 Infant Weight (oz): 7 Length (in): 18.75 Infant Length (cm): 47.63 CORD INFORMATION BABY A No. Cord Vessels: 3 Nuchal Cord : N/A Cord Blood Taken: Yes-For Eval (Mom's Blood Type - or O+) Infant Suction: None ASSESSMENT BABY A Complications: Multiple Late Decels; Multiple Variable Decels; Meconium Physical Findings at Delivery: Within Normal Limits Infant Respirations: Appears Normal Skin to Skin: Yes Skin to Skin Time (min): 5 Inspector Elevators/ALS Called : No Care By: Omi Piña RN Transferred To: Remains with Mother SIGNATURES Assignment: Debbi Roland MD Signature: with User ID: [email or web address] : with User ID: [email or web address] : I was personally available for consultation and serving as supervising physician for the MLP.
[2018-03-20] MEDS: FAMOTIDINE 20 MG TABLET PO SCH ×2 (09:57→22:55)
[2018-03-20] MEDS: SENNOSIDES/DOCUSATE 8.6-50 MG 1 EACH TABLET PO SCH (09:58)
[2018-03-20] MEDS: DOCUSATE SODIUM 100 MG CAPSULE PO SCH ×2 (09:58→17:33)
[2018-03-20] MEDS: FERROUS SULFATE 325 MG TABLET PO SCH (09:58)
[2018-03-20] MEDS: PRENATAL VITAMIN W DHA CAPSULE PO SCH (10:00)
--- NOTE | 2018-03-20 10:39 | PDOC PROGRESS REPORT ---
Subjective-OB Progress Note for:: 03/20/18 Subjective: 23yo G1 now P1 s/p VAVD ppd1. Pt ambulating and voiding without difficulty, reports pain well controlled with medication, no concerns at this time. Physical Exam (OB) Vital Signs: Temp Pulse Resp BP Pulse Ox 97.7 F 99 16 128/80 H 97 03/20/18 08:36 03/20/18 08:36 03/20/18 08:36 03/20/18 08:36 03/20/18 08:36 Intake & Output 03/19/18 03/20/18 03/21/18 06:59 06:59 06:59 Intake Total 1300 Balance 1300 Weight 90.2 kg - General General Appearance: Appears well In distress: None - PIH/Pre-Eclampsia Clonus: Negative Headache: Absent Epigastric Pain: No Visual Changes: No - Episiotomy/Laceration Site Condition: N/A - Lochia Lochia Amount: Small 10-25 ml Lochia Color: Rubra/Red - Abdomen Description: Soft Hernia Present: No Fundal Description: Firm Fundal Height: u/u - u/2 - Respiratory Respiratory Status: No respiratory distress - Extremities Upper extremity: Normal inspection Lower extremities: Normal inspection - Neurological Cognition: Normal Orientation: AAOx4 - Psychological Associated symptoms: Normal affect, Normal mood Objective-Diagnostic Laboratory: 03/20/18 07:04 03/20/18 07:04 WBC 9.4 RBC 3.38 L Hgb 8.8 L D Hct 26.2 L MCV 77 L MCH 25.9 L MCHC 33.5 RDW 15.5 H Plt Count 363 Assessment and Plan(PN) - Assessment and Plan (1) Status post vacuum-assisted vaginal delivery Is this a current diagnosis for this admission?: Yes Plan: Routine pp care (2) Acute blood loss anemia Is this a current diagnosis for this admission?: Yes Plan: Increase dietary iron and FeSO4 BID (3) Oligohydramnios delivered Is this a current diagnosis for this admission?: Yes Plan: delivered - Time Spent with Patient Time with patient: Less than 15 minutes Medications reviewed and adjusted accordingly: Yes - Disposition Anticipated Discharge: Home Within: within 24 hours
[2018-03-21] MEDS: IBUPROFEN 800 MG TABLET PO SCH ×2 (06:38→13:39)
[2018-03-21] MEDS: FERROUS SULFATE 325 MG TABLET PO SCH (10:13)
[2018-03-21] MEDS: PRENATAL VITAMIN W DHA CAPSULE PO SCH (10:13)
[2018-03-21] MEDS: SENNOSIDES/DOCUSATE 8.6-50 MG 1 EACH TABLET PO SCH (10:14)
[2018-03-21] MEDS: FAMOTIDINE 20 MG TABLET PO SCH (10:14)
[2018-03-21] MEDS: DOCUSATE SODIUM 100 MG CAPSULE PO SCH ×2 (10:14→19:11)
--- NOTE | 2018-03-21 10:57 | PDOC PROGRESS REPORT ---
Subjective-OB Progress Note for:: 03/21/18 Subjective: Doing well, no c/o, eating well Physical Exam (OB) Vital Signs: Temp Pulse Resp BP Pulse Ox 98.0 F 101 H 16 128/77 H 99 03/21/18 07:59 03/21/18 07:59 03/21/18 07:59 03/21/18 07:59 03/21/18 07:59 Intake & Output 03/20/18 03/21/18 03/22/18 06:59 06:59 06:59 Intake Total 1300 300 580 Balance 1300 300 580 - PIH/Pre-Eclampsia Clonus: Negative Headache: Absent Epigastric Pain: No Visual Changes: No - Lochia Lochia Amount: Scant < 10 ml Lochia Color: Rubra/Red - Abdomen Description: Soft Hernia Present: No Fundal Description: Firm, Midline Fundal Height: u/u - u/2 Objective-Diagnostic Laboratory: 03/20/18 07:04 Assessment and Plan(PN) - Assessment and Plan (1) Status post vacuum-assisted vaginal delivery Is this a current diagnosis for this admission?: Yes (2) Acute blood loss anemia Is this a current diagnosis for this admission?: Yes (3) Oligohydramnios delivered Is this a current diagnosis for this admission?: Yes - Time Spent with Patient Time with patient: Less than 15 minutes Medications reviewed and adjusted accordingly: Yes - Disposition Anticipated Discharge: Home Within: within 24 hours
[2018-03-22] MEDS: IBUPROFEN 800 MG TABLET PO SCH ×3 (00:19→18:17)
[2018-03-22] MEDS: FAMOTIDINE 20 MG TABLET PO SCH ×2 (00:19→09:20)
[2018-03-22 08:47] VITALS: BP 124/59
[2018-03-22] MEDS: SENNOSIDES/DOCUSATE 8.6-50 MG 1 EACH TABLET PO SCH (09:20)
[2018-03-22] MEDS: DOCUSATE SODIUM 100 MG CAPSULE PO SCH ×2 (09:20→18:17)
[2018-03-22] MEDS: PRENATAL VITAMIN W DHA CAPSULE PO SCH (09:20)
[2018-03-22] MEDS: FERROUS SULFATE 325 MG TABLET PO SCH (09:20)
--- NOTE | 2018-03-22 11:23 | PDOC PROGRESS REPORT ---
Subjective-OB Progress Note for:: 03/22/18 Subjective: Ready for discharge. Physical Exam (OB) Vital Signs: Temp Pulse Resp BP Pulse Ox 97.9 F 94 16 124/59 L 98 03/22/18 08:03 03/22/18 08:03 03/22/18 08:03 03/22/18 08:03 03/22/18 08:03 Intake & Output 03/21/18 03/22/18 03/23/18 06:59 06:59 06:59 Intake Total 300 1130 Balance 300 1130 - PIH/Pre-Eclampsia DTR's: 1 + Clonus: Negative Headache: Absent Epigastric Pain: No Visual Changes: No - Lochia Lochia Amount: Scant < 10 ml Lochia Color: Rubra/Red - Abdomen Description: Soft Hernia Present: No Bowel Sounds: Normoactive Flatus Presence: Present Stool: No Fundal Description: Firm, Midline Fundal Height: u/u - u/2 Objective-Diagnostic Laboratory: 03/20/18 07:04 Assessment and Plan(PN) - Time Spent with Patient Medications reviewed and adjusted accordingly: Yes - Disposition Anticipated Discharge: Home
--- NOTE | 2018-03-22 11:31 | PDOC DISCHARGE SUMMARY ---
Final Diagnosis Discharge Date: 03/22/18 - Final Diagnosis (1) Acute blood loss anemia Is this a current diagnosis for this admission?: Yes (2) Oligohydramnios delivered Is this a current diagnosis for this admission?: Yes (3) Status post vacuum-assisted vaginal delivery Is this a current diagnosis for this admission?: Yes (4) Vaginal delivery Is this a current diagnosis for this admission?: Yes Discharge Data - Discharge Medication Prescriptions: Docusate Sodium [Colace 100 mg Capsule] 100 mg PO BID #30 capsule Home Medications: Vits96/Iron Fum/Folic [ Tablet] 1 each PO DAILY 03/04/18 Vit C/Ascorb Sod/Multivit-Min [Emergen-C 500 mg Chewable Tab] 500 mg PO DAILY 03/04/18 Docusate Sodium [Colace 100 mg Capsule] 100 mg PO BID #30 capsule 03/22/18 Ferrous Sulfate [Feosol 325 mg Tablet] 325 mg PO DAILY tablet 03/22/18 Gestational Age: 40.2 wks Reason(s) for Admission: Induction of Labor Procedures: Ultrasound Intrapartum Procedure(s): Spontaneous Vaginal Delivery - [place] Data Baby 1 Female at 1 minute: 8 at 5 minutes: 9 Weight: 2.92 kg Home with Mother: No Complications: Yes - Pneumonia - Diagnosis Test Laboratory: Temp Pulse Resp BP Pulse Ox 97.9 F 94 16 124/59 L 98 03/22/18 08:03 03/22/18 08:03 03/22/18 08:03 03/22/18 08:03 03/22/18 08:03 03/18/18 03/18/18 03/20/18 12:20 12:34 07:04 RBC 4.58 3.38 L Hgb 11.7 L 8.8 L D Hct 35.9 L 26.2 L Urine Opiates Screen NEGATIVE - Discharge information/Instructions Discharge Activity: Activity As Tolerated, Balance Activity w/Rest, Pelvic Rest, Slowly Increase Activity, No tub bath Discharge Diet: Regular Disposition: HOME, SELF-CARE Follow up with: [facility] in: 1, Weeks
== END 2018-03-22 15:56 | disposition home or self-care (01) | DRG 807 ==
LOC: UNDOADMIN 12:17 → LR 12:17 → 2S 03-19 10:15
PROVIDERS: ADMIT Obstetrics & Gynecology; ATTEND Obstetrics & Gynecology
PROC: 10D07Z6 Extraction of Products of Conception, Vacuum, Via Natural or Artificial Opening (ICD-10-PCS; principal; 2018-03-19)
PROC: 3E033VJ Introduction of Other Hormone into Peripheral Vein, Percutaneous Approach (ICD-10-PCS; 2018-03-19)
PROC: 4A1HX4Z Monitoring of Products of Conception, Cardiac Electrical Activity, External Approach (ICD-10-PCS; 2018-03-19)
DX: O41.03X0 Oligohydramnios, third trimester, not applicable or unspecified (principal); Z37.0 Single live birth; O76 Abnormality in fetal heart rate and rhythm complicating labor and delivery; O77.0 Labor and delivery complicated by meconium in amniotic fluid; Z3A.40 40 weeks gestation of pregnancy; O99.02 Anemia complicating childbirth; Z91.013 Allergy to seafood
CPT/HCPCS: 36415; 80307; 81005; 85025; 85027; 86592; 86850; 86900; 86901; 88307; J2590; J3010; J3490

== ENCOUNTER → 2018-10-04 | Outpatient (CLI) | payer MEDICAID ==
--- NOTE | 2018-10-04 15:42 | RADIOLOGY REPORT (SQ) ---
EXAM DESCRIPTION: U/S [id number] TRNABD 1GES W/ODOP COMPLETED DATE/TIME: 10/04/2018 3:30 pm REASON FOR STUDY: Z34.81 ENCOUNTER FOR SUPRVSN OF NORMAL , FIRST TRIMESTER Z34.81 ENCOUNTE R FOR SUPRVSN OF NORMAL , FIRST TRIM COMPARISON: None. TECHNIQUE: Transabdominal static and realtime grayscale images acquired of the pelvis. Additional se lected spectral and color Doppler images recorded. All images stored on PACs. bHCG: Not available. CLINICAL DATES: 8 weeks 3 days. LIMITATIONS: None. FINDINGS: FETUS: Single Living intrauterine . ULTRASOUND EGA: 7 weeks 2 days. ULTRASOUND JULITA: 05/21/2019 EFW: Not applicable less than 20 weeks. CRL: 1.16 cm. FHR: 113 beats per minute. SURVEY: No visualized anomalies. AMNIOTIC FLUID: Adequate amount. PLACENTA: Not yet developed due to early gestation. SUBCHORIONIC BLEED: No. SIZE OF BLEED: Not applicable. UTERUS: No masses. No anomalies. CERVICAL LENGTH: 2.3 cm. Closed. RIGHT ADNEXA: Ovary not identified due to poor acoustical window. No adnexal free fluid. No adnexal masses. LEFT ADNEXA: Normal ovary with normal vascular flow. No adnexal free fluid. No adnexal masses. FREE FLUID: None. OTHER: No other significant finding. IMPRESSION: LIVING INTRAUTERINE . EGA 7 WEEKS 2 DAYS. Trimester of : First trimester - 0 to 13 weeks. TECHNICAL DOCUMENTATION: JOB ID: [id number] [employer]- All Rights Reserved Reading location - IP/workstation name: [email or web address]
== END ==
LOC: RAD 14:56
PROVIDERS: ATTEND Midwife
DX: Z34.81 Encounter for supervision of other normal pregnancy, first trimester (principal)
CPT/HCPCS: 76801

== ENCOUNTER 2019-05-07 09:17 | Outpatient (CLI) | payer MEDICAID ==
[2019-05-07 10:08] LABS: APPEARANCE,URINE CLOUDY; BILIRUBIN,URINE NEGATIVE (NEGATIVE); GLUCOSE, URINE NEGATIVE (NEGATIVE); KETONES,URINE NEGATIVE (NEGATIVE); LEUKOCYTE ESTERASE,URINE LARGE (NEGATIVE); NITRITE,URINE NEGATIVE (NEGATIVE); PROTEIN,URINE 30 mg/dL (NEGATIVE); URINE SPECIFIC GRAVITY 1.025; UROBILINOGEN,URINE NEGATIVE mg/dL (<2.0)
[2019-05-07 10:14] LABS: COLOR,URINE YELLOW
[2019-05-07 10:22] LABS: URINE AMPHETAMINES SCREEN NEGATIVE; URINE BARBITURATES SCREEN NEGATIVE; URINE BENZODIAZEPINES SCREEN NEGATIVE; URINE COCAINE SCREEN NEGATIVE; URINE MARIJUANA (THC) SCREEN NEGATIVE; URINE METHADONE SCREEN NEGATIVE; URINE PHENCYCLIDINE SCREEN NEGATIVE
--- NOTE | 2019-05-07 10:34 | Non Stress Test Report ---
Non Stress Test Datetime Report Generated by CPN: 05/07/2019 10:34 DEMOGRAPHIC Test Number: 1 EGA NST: 38.0 INDICATION Indication for Study (NST) Other: LC VITAL SIGNS Temperature - NST: 98.2 Pulse - NST: 92 RESP - NST: 16 NBPSYS NST: 108 NBPDIA NST: 55 MONITORING Time on Monitor: 05/07/2019 09:40 Time off Monitor: 05/07/2019 10:32 NST Duration: 52 NST INTERVENTIONS NST Interventions: PO Hydration Physician Notified NST: Dr Roland BABY A: [id number] BABY A Movement : Present Contraction Frequency : 0 FHR Baseline : 130 Accelerations : 15X15 Decelerations : None Variability : Moderate 6-25bpm NST Review: Meets Criteria for Reactive NST NST Review and Verified By : PARGA COATES RN NST Results: Reactive NST REPORT Report Trigger: Send Report
== END 2019-05-07 11:01 | disposition home or self-care (01) ==
LOC: LC 09:17
PROVIDERS: ATTEND Student in an Organized Health Care Education/Training Program
PROC: 4A1HXCZ Monitoring of Products of Conception, Cardiac Rate, External Approach (ICD-10-PCS; principal; 2019-05-07)
DX: O47.1 False labor at or after 37 completed weeks of gestation (principal); O99.283 Endocrine, nutritional and metabolic diseases complicating pregnancy, third trimester; E86.0 Dehydration; Z3A.38 38 weeks gestation of pregnancy
CPT/HCPCS: 59025; 80307; 81005; 84112

== ENCOUNTER 2019-05-14 00:54 | Outpatient (CLI) | payer MEDICAID ==
[2019-05-14 01:27] LABS: APPEARANCE,URINE CLEAR; BILIRUBIN,URINE NEGATIVE (NEGATIVE); COLOR,URINE YELLOW; GLUCOSE, URINE NEGATIVE (NEGATIVE); KETONES,URINE NEGATIVE (NEGATIVE); LEUKOCYTE ESTERASE,URINE SMALL (NEGATIVE); NITRITE,URINE NEGATIVE (NEGATIVE); PROTEIN,URINE NEGATIVE (NEGATIVE); URINE SPECIFIC GRAVITY 1.005; UROBILINOGEN,URINE NEGATIVE mg/dL (<2.0)
[2019-05-14 02:46] LABS: URINE AMPHETAMINES SCREEN NEGATIVE; URINE BARBITURATES SCREEN NEGATIVE; URINE BENZODIAZEPINES SCREEN NEGATIVE; URINE COCAINE SCREEN NEGATIVE; URINE MARIJUANA (THC) SCREEN NEGATIVE; URINE METHADONE SCREEN NEGATIVE; URINE PHENCYCLIDINE SCREEN NEGATIVE
[2019-05-14] MEDS ORDERED: HYDROXYZINE PAMOATE 50 MG CAPSULE ONE (03:39)
[2019-05-14] MEDS ORDERED: HYDROXYZINE PAMOATE 50 MG CAPSULE PO ONE (03:39)
== END 2019-05-14 03:51 | disposition home or self-care (01) ==
LOC: LC 00:54
PROVIDERS: ATTEND Obstetrics & Gynecology Gynecology
PROC: 4A1HXCZ Monitoring of Products of Conception, Cardiac Rate, External Approach (ICD-10-PCS; principal; 2019-05-14)
DX: O47.1 False labor at or after 37 completed weeks of gestation (principal); Z3A.38 38 weeks gestation of pregnancy
CPT/HCPCS: 59025; 81005; 80307; J3490

== ENCOUNTER 2019-05-14 06:40 | Inpatient (IN) | payer MEDICAID ==
--- NOTE | 2019-05-14 06:42 | Non Stress Test Report ---
Non Stress Test Datetime Report Generated by CPN: 05/14/2019 06:42 DEMOGRAPHIC EGA NST: 39.0 INDICATION Indication for Study (NST) Other: labor check VITAL SIGNS Temperature - NST: 98.4 Pulse - NST: 94 RESP - NST: 17 NBPSYS NST: 131 NBPDIA NST: 79 URINE RESULTS Urine Protein, NST: Negative Urine Ketones - NST: Negative Urine Glucose - NST: Negative Urine Blood - NST: Positive MONITORING Monitor Explained: Monitor Explained; Test Explained; Patient Verbalized Understanding Time on Monitor: 05/14/2019 03:18 Time off Monitor: 05/14/2019 03:38 NST Duration: 20 NST INTERVENTIONS NST Interventions: PO Hydration; Reposition Patient Physician Notified NST: Dr Patel BABY A: [id number] BABY A Movement : Present Contraction Frequency : 2-4 FHR Baseline : 135 Accelerations : 15X15 Decelerations : None Variability : Moderate 6-25bpm NST Review: Meets Criteria for Reactive NST NST Review and Verified By : Nikhil Savage, TAD NST Results: Reactive NST REPORT Report Trigger: Send Report
[2019-05-14] MEDS ORDERED: RINGERS SOLUTION,LACTATED 1,000 ML IV PRN (07:01)
[2019-05-14] MEDS ORDERED: RINGERS SOLUTION,LACTATED 1,000 ML IV ONE (07:01)
[2019-05-14 07:53] LABS: ABSOLUTE LYMPHOCYTES (AUTO) 2.3 10^3/uL (0.5-4.7); ABSOLUTE MONOCYTES (AUTO) 0.6 10^3/uL (0.1-1.4); ABSOLUTE NEUT (AUTO) 7.3 10^3/uL (1.7-8.2); BASOPHILS % (AUTO) 0.2 % (0-2); EOSINOPHILS % (AUTO) 0.5 % (0-6); HEMATOCRIT 30.3 % (36.0-47.0); HEMOGLOBIN 9.8 g/dL (12.0-15.5); LYMPHOCYTES % (AUTO) 22.1 % (13-45); MEAN CORPUSCULAR HEMOGLOBIN 22.9 pg (27.0-33.4); MEAN CORPUSCULAR HGB CONC 32.3 g/dL (32.0-36.0); MEAN CORPUSCULAR VOLUME 71 fl (80-97); MONOCYTES % (AUTO) 5.7 % (3-13); PLATELET COUNT 441 10^3/uL (150-450); RED BLOOD COUNT 4.28 10^6/uL (3.72-5.28); RED CELL DISTRIBUTION WIDTH 16.5 % (11.5-14.0); SEGMENTED NEUTROPHILS % (AUTO) 71.5 % (42-78); TOTAL CELLS COUNTED % (AUTO) 100 %; WHITE BLOOD COUNT 10.2 10^3/uL (4.0-10.5)
[2019-05-14] MEDS ORDERED: MISOPROSTOL 0.2 MG TABLET ONE (07:53)
[2019-05-14] MEDS ORDERED: LIDOCAINE 1% INJ-PF (10 MG/ML) 30 ML SDV ONE (07:53)
[2019-05-14] MEDS ORDERED: OXYTOCIN 10 UNIT/ML VIAL ONE (07:53)
[2019-05-14] MEDS ORDERED: OXYTOCIN/NORMAL SALINE 20 UNIT/1,000 ML RTUINJ ONE (07:54)
--- NOTE | 2019-05-14 08:19 | Admission Physical ---
Datetime Report Generated by CPN: 05/14/2019 08:19 CURRENT ADMISSION Chief Complaint: Uterine Contractions; Suspected Ruptured Membranes Chief Complaint Other: Contractions since midnight that have been increasing in intensity. She thinks water broke on way. Good FM. NO VB. Admit Impression : Term, Intrauterine ; Active Labor Admit Plan: Admit to Unit; Initiate Labor Protocol ALLERGIES Medication Allergies: No Medication Allergies: shellfish derived (03/19/2018) Latex: No Latex Allergies Environmental Allergies: pollen OBSTETRICAL HISTORY EDC: 05/21/2019 00:00 : 2 Para: 1 Term: 1 : 0 SAB: 0 IAB: 0 Livin Gestational Diabetes: No Rh Sensitization: No Incompetent Cervix: No TENZIN: No Infertility: No ART Treatment: No Uterine Anomaly: No IUGR: No Hx Previous C/S: No Macrosomia: No Hx Loss/Stillborn: No PIH: No Hx : No Placenta Previa/Abruption: No Depression/PP Depression: No PTL/PROM: No Post Hemorrhage: No Current Procedures: Ultrasound; NST Obstetrical History Comments: G1- childbirth 2018 G2- Current SEE RECORDS Alcohol: No Marijuana : No Cocaine: No Other Illicit Drugs: No Cigarettes: Never Smoker. [id number] MEDICAL HISTORY Diabetes: No Blood Transfusion: No Pulmonary Disease (Asthma, TB): No Breast Disease: No Hypertension: No Right Of Way Clearer Surgery: No Heart Disease: No Hosp/Surgery: Yes Autoimmune Disorder: No Anesthetic Complications: No Kidney Disease: Yes Abnormal Pap Smear: No Neuro/Epilepsy: No Psychiatric Disorders: No Other Medical Diseases: No Hepatitis/Liver Disease: No Significant Family History: No Varicosities/Phlebitis: No Trauma/Violence : No Thyroid Dysfunction: No Medical History Comments: hx uti's/cyst removed from neck INFECTIOUS HISTORY Gonorrhea: No Genital Herpes: No Chlamydia: No Tuberculosis: No Syphilis: No Hepatitis: No HIV/AIDS Exposure: No Rash or Viral Illness: No HPV: No PHYSICAL EXAM General: Normal HEENT: Normal Neurologic: Normal Thyroid: Normal Heart: Normal Lungs: Normal Breast: Normal Back: Normal Abdomen: Normal Genitourinary Exam: Normal Extremities: Normal DTRs: Normal Pelvic Type: Adequate Vital Signs: Reviewed VAGINAL EXAM Dilatation: 9 Effacement: 100 Station: 0 Contraction Comments: regular contractions MEMBRANES Amniotic Fluid Color: Clear FETUS A EGA: 39.0 Monitoring: External US FHR- Baseline: 120 Variability: Moderate 6-25bpm Accelerations: 15X15 Decelerations: None FHR Category: Category I Presentation: Vertex Admit Comment: at 39.0 wks EGA in active labor -Admit to LDR -NPO and IVFs -CEFM and toco -GBS negative -O positive -Hx one prior , anticipate PLANS FOR LABOR AND DELIVERY Labor and Delivery: None Pain Management: Epidural Feeding Preference: Formula Benefit of Breast Feed Discussed: Yes Circumcision: Yes INFORMED CONSENT Informed Consent Obtained: Vaginal Delivery; Risks, Benefits and Alternatives Discussed Signature: with User ID: Lexa : with User ID: [email or web address]
[2019-05-14] MEDS ORDERED: BENZOCAINE/MENTHOL AEROSOL SPRAY 56 ML TOP PRN (08:25)
[2019-05-14] MEDS ORDERED: ZOLPIDEM TARTRATE 5 MG TABLET PO PRN (08:25)
[2019-05-14] MEDS ORDERED: DIPH/PERTUSS(ACELL)/TETANUS VAC/PF 0.5 ML SYR (>=10YO) IM PRN (08:25)
[2019-05-14] MEDS ORDERED: ACETAMINOPHEN WITH CODEINE #3 TABLET PO PRN ×2 (08:25)
[2019-05-14] MEDS ORDERED: OXYTOCIN/NORMAL SALINE 20 UNIT/1,000 ML RTUINJ IV PRN (08:25)
[2019-05-14] MEDS ORDERED: MEASLES,MUMPS&RUBELLA VACC/PF 0.5 ML VIAL SUBCUT PRN (08:25)
[2019-05-14] MEDS ORDERED: DIBUCAINE 1% OINTMENT 28 GM TP PRN (08:25)
[2019-05-14 09:18] LABS: ALBUMIN 3.6 g/dL (3.5-5.0); ALKALINE PHOSPHATASE 130 U/L (38-126); ANION GAP 9 (5-19); ASPARTATE AMINO TRANSFERASE 20 U/L (14-36); BILIRUBIN,DIRECT 0.2 mg/dL (0.0-0.4); BILIRUBIN,TOTAL 0.4 mg/dL (0.2-1.3); BLOOD UREA NITROGEN 5 mg/dL (7-20); CARBON DIOXIDE 20 mmol/L (22-30); CHLORIDE 105 mmol/L (98-107); GLUCOSE 86 mg/dL (75-110); POTASSIUM 3.9 mmol/L (3.6-5.0); URIC ACID 5.8 mg/dL (2.5-6.2)
--- NOTE | 2019-05-14 09:40 | Delivery Summary ---
Del Sum A-C Datetime Report Generated by CPN: 05/14/2019 09:40 DELIVERY PERSONNEL DELIVERY PERSONNEL: [id number] Delivery Doctor:: Celine Lerma MD Labor and Delivery Nurse:: Sabina Chavez RNaluminum siding mechanic Nurse:: Leydi Castle RN Paranormal Investigator/LAST CHALKER: Lynne Murillo, RESEARCH AND DEVELOPMENT CHEMIST Paranormal Investigator/LAST CHALKER: [facility] Additional Personnel: : Christy Ware RNC MATERNAL INFORMATION Delivery Anesthesia: None Medications After Delivery: Pitocin Bolus-Please Comment Meds After Delivery Comment: Pitocin 20 units in 1000 ml NSS open for bolus after delivery of placenta Delivery QBL: 140 Maternal Complications: Precipitous Labor (<3hrs) Provider Comments: Called to patients room as she was completely dilated with urge to push. On arrival in room she was found to be +2 station and pushed through two contractions, delivering a viable male infant. Cord clamping delayed 30 seconds as infant was vigorous. Cord then doubly clamped and cut. Infant to Mother's chest. Both stable during skin to skin. LABOR SUMMARY EDC: 05/21/2019 00:00 No. Babies in Womb: 1 Attempted: No Labor Anesthesia: None LABOR INFORMATION Reason for Induction: Not Applicable Onset of Labor: 05/14/2019 01:00 Complete Dilatation: 05/14/2019 07:54 Oxytocin: N/A Group B Beta Strep: neg Antibiotics # of Doses: 0 Steroids Given: None Reason Steroids Not Administered: Not Applicable MEMBRANES Membranes Rupture Method: Spontaneous Rupture of Membranes: 05/14/2019 06:15 Length of Rupture (hr): 1.73 Amniotic Fluid Color: Clear Amniotic Fluid Amount: Small Amniotic Fluid Odor: Normal STAGES OF LABOR Stage 1 hr: 6 Stage 1 min: 54 Stage 2 hr: 0 Stage 2 min: 5 Stage 3 hr: 0 Stage 3 min: 4 Total Time in Labor hr: 7 Total Time in Labor min: 3 VAGINAL DELIVERY Episiotomy: None Laceration #1: Perineal; Periurethral Laceration Extension #1: First Degree Laceration Repair: Yes Laceration Repair Note: Repaired with 3-0 chromic in a running fashion Sponge Count Correct: N/A Sharps Count Correct: N/A CSECTION DELIVERY Primary Indication: N/A Secondary Indication: N/A CSection Incidence: N/A Labor: N/A Elective: N/A CSection Incision: N/A BABY A INFORMATION Delivery Date/Time: 05/14/2019 07:59 Method of Delivery: Vaginal Nurse Controlled Delivery: No Born in Route : No : N/A Forceps: N/A Vacuum Extraction: N/A Shoulder Dystocia : No PRESENTATION/POSITION BABY A Presentation: Cephalic Cephalic Presentation: Vertex Vertex Position: Right Occipital Anterior Breech Presentation: N/A PLACENTA INFORMATION BABY A Placenta Delivery Time : 05/14/2019 08:03 Placenta Method of Delivery: Spontaneous Placenta Status: Delivered SCORES BABY A Heart Rate 1 min: >100 bpm Resp Effort 1 min: Good Cry Reflex Irritability 1 min: Cough or Sneeze or Pulls Away Muscle Tone 1 min: Active Motion Color 1 min: Body [place], Extremities Blue Resuscitation Effort 1 min: Tactile Stimulation SCORE 1 MIN: 9 Heart Rate 5 min: >100 bpm Resp Effort 5 min: Good Cry Reflex Irritability 5 min: Cough or Sneeze or Pulls Away Muscle Tone 5 min: Active Motion Color 5 min: Body [place], Extremities Blue Resuscitation Effort 5 min: N/A SCORE 5 MIN: 9 Resuscitation Effort 10 min: N/A INFANT INFORMATION BABY A Gestational Age at Delivery: 39.0 Gestational Status: Full Term- 39- 40.6 Weeks Infant Outcome : Liveborn Condition : Stable Sex: Male IDENTIFICATION BABY A Verification Date/Time: 05/14/2019 08:08 ID Band Number: [id number] Mother's Name Verified: Yes RN Verifying : Christy Camp RNC Additional Verifying Personnel: Leydi Chavez RN WEIGHT/LENGTH BABY A Infant Birthweight (gm): 3400 Infant Weight (lb): 7 Infant Weight (oz): 8 Length (in): 20.50 Length (cm): 52.07 CORD INFORMATION BABY A No. Cord Vessels: 3 Nuchal Cord : N/A Cord Blood Taken: Yes-For Eval (Mom's Blood Type - or O+) Suction: None ASSESSMENT BABY A Infant Complications: None Physical Findings at Delivery: Within Normal Limits Infant Respirations: Appears Normal Skin to Skin: Yes Skin to Skin Time (min): 60 Building Official/ALS Called : No Care By: J Niebuhr RN Transferred To: Remains with Mother BABY B INFORMATION : N/A SIGNATURES Signature: with User ID: Lexa : with User ID: Lexa
[2019-05-14] MEDS: FERROUS SULFATE 325 MG TABLET PO SCH ×2 (13:20→17:35)
[2019-05-14] MEDS: DOCUSATE SODIUM 100 MG CAPSULE PO SCH ×2 (13:20→17:35)
[2019-05-14] MEDS: SENNOSIDES/DOCUSATE 8.6-50 MG 1 EACH TABLET PO SCH (13:20)
[2019-05-14] MEDS: PRENATAL VITAMIN W DHA CAPSULE PO SCH (13:20)
[2019-05-14] MEDS: IBUPROFEN 800 MG TABLET PO SCH ×2 (13:21→21:00)
[2019-05-15] MEDS: IBUPROFEN 800 MG TABLET PO SCH ×3 (05:48→22:39)
[2019-05-15 06:50] LABS: ABSOLUTE EOSINOPHILS # (AUTO) 0.2 10^3/uL (0.0-0.6); ABSOLUTE LYMPHOCYTES (AUTO) 2.2 10^3/uL (0.5-4.7); ABSOLUTE MONOCYTES (AUTO) 0.6 10^3/uL (0.1-1.4); ABSOLUTE NEUT (AUTO) 5.3 10^3/uL (1.7-8.2); BASOPHILS % (AUTO) 0.5 % (0-2); EOSINOPHILS % (AUTO) 1.8 % (0-6); HEMATOCRIT 27.8 % (36.0-47.0); HEMOGLOBIN 9.2 g/dL (12.0-15.5); LYMPHOCYTES % (AUTO) 26.5 % (13-45); MEAN CORPUSCULAR HEMOGLOBIN 23.5 pg (27.0-33.4); MEAN CORPUSCULAR HGB CONC 33.2 g/dL (32.0-36.0); MEAN CORPUSCULAR VOLUME 71 fl (80-97); MONOCYTES % (AUTO) 7.6 % (3-13); PLATELET COUNT 378 10^3/uL (150-450); RED BLOOD COUNT 3.92 10^6/uL (3.72-5.28); RED CELL DISTRIBUTION WIDTH 16.9 % (11.5-14.0); SEGMENTED NEUTROPHILS % (AUTO) 63.6 % (42-78); TOTAL CELLS COUNTED % (AUTO) 100 %; WHITE BLOOD COUNT 8.4 10^3/uL (4.0-10.5)
[2019-05-15] MEDS: FERROUS SULFATE 325 MG TABLET PO SCH ×2 (09:49→17:54)
[2019-05-15] MEDS: PRENATAL VITAMIN W DHA CAPSULE PO SCH (09:49)
[2019-05-15] MEDS: DOCUSATE SODIUM 100 MG CAPSULE PO SCH ×2 (09:49→17:54)
[2019-05-15] MEDS: SENNOSIDES/DOCUSATE 8.6-50 MG 1 EACH TABLET PO SCH (09:50)
--- NOTE | 2019-05-15 09:52 | PDOC PROGRESS REPORT ---
Subjective-OB Progress Note for:: 05/15/19 - PP Day #1, doing well, UOB, voiding, would like to go home today if possible, O+, Rubella Immune. bottlefeeding Physical Exam (OB) Vital Signs: Temp Pulse Resp BP Pulse Ox 97.4 F 69 16 123/54 L 100 05/15/19 08:01 05/15/19 08:01 05/15/19 08:01 05/15/19 08:01 05/15/19 08:01 Intake & Output 05/14/19 05/15/19 05/16/19 06:59 06:59 06:59 Intake Total 240 Balance 240 Weight 88.1 kg - General General Appearance: Appears well, Alert - PIH/Pre-Eclampsia DTR's: 1 + Clonus: Negative Headache: Absent Epigastric Pain: No Visual Changes: No - Lochia Lochia Amount: Scant < 10 ml Lochia Color: Rubra/Red - Abdomen Description: Soft, Round Hernia Present: No Fundal Description: Firm, Midline Fundal Height: u/u - u/2 - Respiratory Respiratory Status: No respiratory distress - Abdominal Distension: No distension Tenderness: Nontender - Genitourinary Genitourinary Note: voiding - Extremities Upper extremity: Normal inspection Lower extremities: Normal inspection - Psychological Associated symptoms: Normal affect, Normal mood Objective-Diagnostic Laboratory: 05/15/19 06:26 05/14/19 07:26 05/15/19 06:26 WBC 8.4 RBC 3.92 Hgb 9.2 L Hct 27.8 L MCV 71 L MCH 23.5 L MCHC 33.2 RDW 16.9 H Plt Count 378 Seg Neutrophils % 63.6 Assessment and Plan(PN) - Assessment and Plan (1) Acute blood loss anemia Is this a current diagnosis for this admission?: Yes (2) Oligohydramnios delivered Is this a current diagnosis for this admission?: Yes (3) Status post vacuum-assisted vaginal delivery Is this a current diagnosis for this admission?: Yes (4) Vaginal delivery Is this a current diagnosis for this admission?: Yes - Time Spent with Patient Time with patient: Less than 15 minutes Medications reviewed and adjusted accordingly: Yes - Disposition Anticipated Discharge: Home Within: within 24 hours
[2019-05-16] MEDS: IBUPROFEN 800 MG TABLET PO SCH (05:44)
--- NOTE | 2019-05-16 08:49 | PDOC PROGRESS REPORT ---
Subjective-OB Progress Note for:: 05/16/19 Subjective: Doing well, ready to go home, bottle feeding, scant lochia Physical Exam (OB) Vital Signs: Temp Pulse Resp BP Pulse Ox 97.5 F 89 18 114/64 100 05/16/19 07:38 05/16/19 07:38 05/16/19 07:38 05/16/19 07:38 05/16/19 07:38 Intake & Output 05/15/19 05/16/19 05/17/19 06:59 06:59 06:59 Intake Total 840 Balance 840 Weight 88.1 kg - PIH/Pre-Eclampsia DTR's: 1 + Clonus: Negative Headache: Absent Epigastric Pain: No Visual Changes: No - Lochia Lochia Amount: Scant < 10 ml Lochia Color: Rubra/Red - Abdomen Description: Soft Hernia Present: No Fundal Description: Firm, Midline Fundal Height: u/u - u/2 Objective-Diagnostic Laboratory: 05/15/19 06:26 05/14/19 07:26 Assessment and Plan(PN) - Assessment and Plan (1) Status post vacuum-assisted vaginal delivery Is this a current diagnosis for this admission?: Yes (2) Acute blood loss anemia Is this a current diagnosis for this admission?: Yes (3) Oligohydramnios delivered Is this a current diagnosis for this admission?: Yes (4) Vaginal delivery Is this a current diagnosis for this admission?: Yes - Time Spent with Patient Time with patient: Less than 15 minutes Medications reviewed and adjusted accordingly: Yes - Disposition Anticipated Discharge: Home Within: within 24 hours
--- NOTE | 2019-05-16 08:52 | PDOC DISCHARGE SUMMARY ---
Impression - Admit/DC Date/PCP Admission Date/Primary Care Provider: 05/14/19 06:53 JOEL VASQUEZ MD Discharge Date: 05/16/19 - Discharge Diagnosis (1) Status post vacuum-assisted vaginal delivery Is this a current diagnosis for this admission?: Yes (2) Acute blood loss anemia Is this a current diagnosis for this admission?: Yes (3) Oligohydramnios delivered Is this a current diagnosis for this admission?: Yes (4) Vaginal delivery Is this a current diagnosis for this admission?: Yes - Additional Information Resuscitation Status: Full Code Discharge Diet: Regular Discharge Activity: Activity As Tolerated, No Lifting Over 10 Pounds, No tub bath Referrals: [facility] [Provider Group] (Please call and schedule a 4 week follow up at [facility].) Home Medications: Vits96/Iron Fum/Folic [ Tablet] 1 each PO DAILY 03/04/18 Ferrous Sulfate [Feosol 325 mg Tablet] 325 mg PO DAILY tablet 03/22/18 HPI Gestational Age: 41 Reason(s) for Admission: Onset of Labor Procedures: NST, Ultrasound Intrapartum Procedure(s): Vacuum Extraction Complication(s): Laceration-Perineal, Laceration-Periurethral Laceration-Degree: 1st - boy, 10/21, 7-8 Hospital Course Hospital Course: normal pp Results Laboratory Results: WBC 8.4 10^3/uL (4.0-10.5) 05/15/19 06:26 RBC 3.92 10^6/uL (3.72-5.28) 05/15/19 06:26 Hgb 9.2 g/dL (12.0-15.5) L 05/15/19 06:26 Hct 27.8 % (36.0-47.0) L 05/15/19 06:26 MCV 71 fl (80-97) L 05/15/19 06:26 MCH 23.5 pg (27.0-33.4) L 05/15/19 06:26 MCHC 33.2 g/dL (32.0-36.0) 05/15/19 06:26 RDW 16.9 % (11.5-14.0) H 05/15/19 06:26 Plt Count 378 10^3/uL (150-450) 05/15/19 06:26 Lymph % (Auto) 26.5 % (13-45) 05/15/19 06:26 [place] % (Auto) 7.6 % (3-13) 05/15/19 06:26 Eos % (Auto) 1.8 % (0-6) 05/15/19 06:26 Baso % (Auto) 0.5 % (0-2) 05/15/19 06:26 Absolute Neuts (auto) 5.3 10^3/uL (1.7-8.2) 05/15/19 06:26 Absolute Lymphs (auto) 2.2 10^3/uL (0.5-4.7) 05/15/19 06:26 Absolute Monos (auto) 0.6 10^3/uL (0.1-1.4) 05/15/19 06:26 Absolute Eos (auto) 0.2 10^3/uL (0.0-0.6) 05/15/19 06:26 Absolute Basos (auto) 0.0 10^3/uL (0.0-0.2) 05/15/19 06:26 Seg Neutrophils % 63.6 % (42-78) 05/15/19 06:26 Sodium 134.4 mmol/L (137-145) L 05/14/19 07:26 Potassium 3.9 mmol/L (3.6-5.0) 05/14/19 07:26 Chloride 105 mmol/L (98-107) 05/14/19 07:26 Carbon Dioxide 20 mmol/L (22-30) L 05/14/19 07:26 Anion Gap 9 (5-19) 05/14/19 07:26 BUN 5 mg/dL (7-20) L 05/14/19 07:26 Creatinine 0.59 mg/dL (0.52-1.25) 05/14/19 07:26 Est GFR ( Amer) > 60 (>60) 05/14/19 07:26 Est GFR (MDRD) Non-Af > 60 (>60) 05/14/19 07:26 Glucose 86 mg/dL (75-110) 05/14/19 07:26 Uric Acid 5.8 mg/dL (2.5-6.2) 05/14/19 07:26 Calcium 9.0 mg/dL (8.4-10.2) 05/14/19 07:26 Total Bilirubin 0.4 mg/dL (0.2-1.3) 05/14/19 07:26 Direct Bilirubin 0.2 mg/dL (0.0-0.4) 05/14/19 07:26 Neonat Total Bilirubin Not Reportable 05/14/19 07:26 Neonat Direct Bilirubin Not Reportable 05/14/19 07:26 Neonat Indirect Bili Not Reportable 05/14/19 07:26 AST 20 U/L (14-36) 05/14/19 07:26 ALT 9 U/L (<35) 05/14/19 07:26 Alkaline Phosphatase 130 U/L (38-126) H 05/14/19 07:26 Lactate Dehydrogenase 151 U/L (120-246) 05/14/19 07:26 Total Protein 7.0 g/dL (6.3-8.2) 05/14/19 07:26 Albumin 3.6 g/dL (3.5-5.0) 05/14/19 07:26 RPR NONREACTIVE (NONREACTIVE) 05/14/19 07:26 Blood Type O POSITIVE 05/14/19 07:26 Antibody Screen NEGATIVE 05/14/19 07:26 Plan Health Concerns: routine Plan of Treatment: discharge home with precautions Goals: no complications Time Spent: Less than 30 Minutes
[2019-05-16] MEDS: FERROUS SULFATE 325 MG TABLET PO SCH (10:07)
[2019-05-16] MEDS: DOCUSATE SODIUM 100 MG CAPSULE PO SCH (10:07)
[2019-05-16] MEDS: SENNOSIDES/DOCUSATE 8.6-50 MG 1 EACH TABLET PO SCH (10:07)
[2019-05-16] MEDS: PRENATAL VITAMIN W DHA CAPSULE PO SCH (10:07)
[2019-05-16 10:21] VITALS: BP 135/67
== END 2019-05-16 12:05 | disposition home or self-care (01) | DRG 807 ==
LOC: LC 06:40 → LR 06:53 → 2S 10:40
PROVIDERS: ADMIT Obstetrics & Gynecology Gynecology; ATTEND Obstetrics & Gynecology Gynecology
PROC: 10D07Z6 Extraction of Products of Conception, Vacuum, Via Natural or Artificial Opening (ICD-10-PCS; principal; 2019-05-14)
PROC: 0HQ9XZZ Repair Perineum Skin, External Approach (ICD-10-PCS; 2019-05-14)
PROC: 0UQMXZZ Repair Vulva, External Approach (ICD-10-PCS; 2019-05-14)
DX: O41.03X0 Oligohydramnios, third trimester, not applicable or unspecified (principal); Z37.0 Single live birth; O75.89 Other specified complications of labor and delivery; O62.3 Precipitate labor; O71.82 Other specified trauma to perineum and vulva; O70.0 First degree perineal laceration during delivery; Z3A.39 39 weeks gestation of pregnancy
CPT/HCPCS: 36415; 80053; 83615; 84550; 85025; 86592; 86850; 86900; 86901; J2590; J3490